=== PATIENT | female | born 1955 | race Caucasian/White ===

== ENCOUNTER 2016-08-01 18:47 | Inpatient (IN) | payer MEDICARE, MEDICAID ==
[2016-08-01] MEDS ORDERED: LORazepam 2 MG/ML SYRINGE ONE (23:24)
[2016-08-01] MEDS ORDERED: LORazepam 2 MG/ML SYRINGE IVP STA ×2 (23:25→23:42)
[2016-08-02] MEDS ORDERED: ONDANSETRON 4 MG/2 ML VIAL IVP PRN (02:42)
[2016-08-02] MEDS ORDERED: traMADol 50 MG TABLET PO PRN (02:42)
[2016-08-02] MEDS ORDERED: ACETAMINOPHEN 325 MG TABLET PO PRN (02:42)
[2016-08-02] MEDS ORDERED: SODIUM CHLORIDE FLUSH 0.9% 10 ML SYRINGE IVP PRN (02:42)
[2016-08-02] MEDS: LORazepam 2 MG/ML SYRINGE IVP PRN ×3 (04:00→11:32)
[2016-08-02] MEDS: LEVOTHYROXINE 75 MCG TABLET PO SCH (06:57)
[2016-08-02] MEDS: SODIUM CHLORIDE FLUSH 0.9% 10 ML SYRINGE IVP SCH ×4 (06:58→21:32)
[2016-08-02] MEDS: levETIRAcetam 250 MG TABLET PO SCH ×2 (09:23→21:43)
[2016-08-02] MEDS: METOPROLOL SUCCINATE 50 MG TABLET PO SCH (09:26)
[2016-08-02] MEDS: ASPIRIN EC 81 MG TABLET PO SCH (09:28)
[2016-08-02] MEDS: FERROUS SULFATE 325 MG TABLET PO SCH (09:29)
[2016-08-02] MEDS: PARoxetine 10 MG TABLET PO SCH (09:30)
[2016-08-02] MEDS: ENOXAPARIN 40 MG/0.4 ML SYRINGE SUBQ SCH (09:32)
[2016-08-02] MEDS: POLYETHYLENE GLYCOL 3350 17 GM PACKET PO SCH (09:37)
[2016-08-02] MEDS ORDERED: HALOPERIDOL 5 MG/ML VIAL IM ONE (12:45)
[2016-08-02] MEDS: BRIMONIDINE 0.2% OPHTH DROPS 5 ML EACHEYE SCH ×2 (13:12→21:40)
[2016-08-02] MEDS ORDERED: DEXTROSE 5% 1,000 ML IV PRN (18:13)
[2016-08-02] MEDS ORDERED: DEXTROSE GEL 37.5 GM TUBE PO PRN (18:13)
[2016-08-02] MEDS ORDERED: GLUCAGON 1 MG/ML VIAL SUBQ PRN (18:13)
[2016-08-02] MEDS ORDERED: DEXTROSE 50% ABBOJECT 25 GM/50 ML SYRINGE IVP PRN (18:13)
[2016-08-02] MEDS ORDERED: SODIUM CHLORIDE 0.9% 500 ML IV SCH (20:39)
[2016-08-02] MEDS ORDERED: MAGNESIUM SULFATE 5 GM/10 ML VIAL IV STA (20:40)
[2016-08-02] MEDS ORDERED: levETIRAcetam INJ 500 MG in SODIUM CHLORIDE 0.9% 100ML 100 ML IV SCH (20:45)
[2016-08-02] MEDS ORDERED: TRAVOPROST 0.004% OPHTH DROPS 2.5 ML EACHEYE SCH (21:00)
[2016-08-02] MEDS: INSULIN ASPART 300 UNIT/3 ML PEN SUBQ SCH (21:30)
[2016-08-02] MEDS: SODIUM CHLORIDE 0.9% 1,000 ML IV SCH (21:31)
[2016-08-02] MEDS: MAGNESIUM SULFATE 2 GRAM 50 ML IV SCH (21:31)
[2016-08-02] MEDS: TRAVOPROST 0.004% OPHTH DROPS 2.5 ML EACHEYE SCH (21:40)
[2016-08-03] MEDS: MAGNESIUM SULFATE 2 GRAM 50 ML IV SCH (00:46)
[2016-08-03] MEDS: SODIUM CHLORIDE FLUSH 0.9% 10 ML SYRINGE IVP SCH ×3 (00:48→21:15)
[2016-08-03] MEDS: SODIUM CHLORIDE 0.9% 1,000 ML IV SCH ×2 (06:52→16:50)
[2016-08-03] MEDS: LEVOTHYROXINE 75 MCG TABLET PO SCH ×2 (06:53→09:07)
[2016-08-03] MEDS: INSULIN ASPART 300 UNIT/3 ML PEN SUBQ SCH ×4 (08:54→21:14)
[2016-08-03] MEDS: BRIMONIDINE 0.2% OPHTH DROPS 5 ML EACHEYE SCH ×2 (09:03→21:14)
[2016-08-03] MEDS: ASPIRIN EC 81 MG TABLET PO SCH (09:03)
[2016-08-03] MEDS: METOPROLOL SUCCINATE 50 MG TABLET PO SCH ×2 (09:04→09:09)
[2016-08-03] MEDS: ENOXAPARIN 40 MG/0.4 ML SYRINGE SUBQ SCH (09:04)
[2016-08-03] MEDS: FERROUS SULFATE 325 MG TABLET PO SCH (09:04)
[2016-08-03] MEDS: PARoxetine 10 MG TABLET PO SCH (09:06)
[2016-08-03] MEDS: POLYETHYLENE GLYCOL 3350 17 GM PACKET PO SCH (09:07)
[2016-08-03] MEDS: levETIRAcetam 250 MG TABLET PO SCH (21:14)
[2016-08-03] MEDS: TRAVOPROST 0.004% OPHTH DROPS 2.5 ML EACHEYE SCH (21:14)
[2016-08-04] MEDS: SODIUM CHLORIDE FLUSH 0.9% 10 ML SYRINGE IVP SCH ×2 (01:45→14:42)
[2016-08-04] MEDS: LEVOTHYROXINE 75 MCG TABLET PO SCH (06:33)
[2016-08-04] MEDS: INSULIN ASPART 300 UNIT/3 ML PEN SUBQ SCH ×2 (08:00→12:00)
[2016-08-04] MEDS: METOPROLOL SUCCINATE 50 MG TABLET PO SCH (08:44)
[2016-08-04] MEDS: FERROUS SULFATE 325 MG TABLET PO SCH (08:44)
[2016-08-04] MEDS: ASPIRIN EC 81 MG TABLET PO SCH (08:45)
[2016-08-04] MEDS: POLYETHYLENE GLYCOL 3350 17 GM PACKET PO SCH (08:45)
[2016-08-04] MEDS: levETIRAcetam 250 MG TABLET PO SCH (08:45)
[2016-08-04] MEDS: PARoxetine 10 MG TABLET PO SCH (08:45)
[2016-08-04] MEDS: ENOXAPARIN 40 MG/0.4 ML SYRINGE SUBQ SCH (08:53)
[2016-08-04] MEDS ORDERED: DOCUSATE SODIUM 250 MG CAPSULE PO SCH (09:00)
[2016-08-04] MEDS ORDERED: SENNA 8.6 MG TABLET PO SCH (09:00)
[2016-08-04] MEDS: BRIMONIDINE 0.2% OPHTH DROPS 5 ML EACHEYE SCH (09:05)
== END 2016-08-04 16:38 | disposition home or self-care (01) | DRG 91 ==
DX: G92 Toxic encephalopathy (principal); G93.41 Metabolic encephalopathy; T37.0X5A Adverse effect of sulfonamides, initial encounter; K76.89 Other specified diseases of liver; L27.0 Generalized skin eruption due to drugs and medicaments taken internally; G40.909 Epilepsy, unspecified, not intractable, without status epilepticus; E03.9 Hypothyroidism, unspecified; I25.10 Atherosclerotic heart disease of native coronary artery without angina pectoris; E11.9 Type 2 diabetes mellitus without complications; Q96.9 Turner's syndrome, unspecified; I10 Essential (primary) hypertension; G31.9 Degenerative disease of nervous system, unspecified; M81.0 Age-related osteoporosis without current pathological fracture; K80.80 Other cholelithiasis without obstruction; J34.1 Cyst and mucocele of nose and nasal sinus; I25.2 Old myocardial infarction; Z96.642 Presence of left artificial hip joint; Z79.82 Long term (current) use of aspirin; Z79.899 Other long term (current) drug therapy

== ENCOUNTER 2016-08-07 | Outpatient (CLI) | payer MEDICARE, MEDICAID | END 2016-08-07 01:36 | disposition EMS.NT ==

== ENCOUNTER 2016-08-09 | Outpatient (CLI) | payer MEDICARE, MEDICAID | END 2016-08-09 01:16 | disposition critical access hospital (66) | DX: R45.1 Restlessness and agitation (principal) | CPT/HCPCS: A0425; A0429 ==

== ENCOUNTER 2016-08-09 02:14 | Emergency (ER) | payer MEDICARE, MEDICAID ==
[2016-08-09] MEDS ORDERED: traMADol 50 MG TABLET PO STA (04:36)
[2016-08-09] MEDS ORDERED: traMADol 50 MG TABLET PO ONE (04:37)
== END 2016-08-09 04:51 | disposition home or self-care (01) ==
DX: R41.0 Disorientation, unspecified (principal); R45.1 Restlessness and agitation
CPT/HCPCS: 81001; 93005; 99283; 99284; A9270